=== PATIENT | female | born 1985 | race African-American/Black ===

== ENCOUNTER 2019-07-19 15:52 | Emergency (ER) | payer OTHER ==
[~2019-07-19] VITALS: Ht 165.1 cm; Wt 91.4 kg
[2019-07-19 16:00] VITALS: BP 135/94; PULSE 93; TEMP 97.2
== END 2019-07-19 17:09 | disposition left against medical advice (07) ==
LOC: COL.ER 15:52
DX: L50.9 Urticaria, unspecified (principal)